=== PATIENT | male | born 1970 | race Caucasian/White ===

== ENCOUNTER 2021-06-23 14:18 | Emergency (ER) | payer OTHER ==
[2021-06-23] MEDS ORDERED: SODIUM CHLORIDE 0.9% 500 ML INFUS.BAG IV ONE (15:11)
[2021-06-23 15:20] VITALS: TEMP 98.4; BMI 25.7
[2021-06-23 15:58] LABS: BASO % 1.9 % (0-2.0); EOS % 2.2 % (0-4.5); HEMATOCRIT 46.1 % (35.4-49); HEMOGLOBIN 15.8 GM/dl (11.7-16.9); LYMPH % 14.9 % (8-40); MCH 32.1 pg (25.7-33.7); MCHC 34.3 g/dl (32.0-35.9); MEAN CELL VOLUME 93.6 fl (80-96); MEAN PLT VOLUME 8.3 fl (7.5-11.1); MONO % 6.9 % (3.8-10.2); NEUT % 74.1 % (42.8-82.8); PLATELET COUNT 177 10^3/uL (134-434); RBC 4.93 M/mm3 (4.00-5.60); RDW 11.3 % (11.9-15.9); WHITE BLOOD COUNT 8.8 K/mm3 (4.0-10.8)
[2021-06-23 16:17] LABS: ALBUMIN 4.1 g/dl (3.4-5.0); BILIRUBIN,TOTAL 1.4 mg/dl (0.2-1); CALCIUM 8.6 mg/dl (8.5-10); CREATININE 0.6 mg/dl (0.55-1.3); MAGNESIUM 1.8 mg/dL (1.8-2.4); PHOSPHOROUS 3.6 mg/dl (2.5-4.9); TOT PROT 7.6 g/dl (6.4-8.2)
[2021-06-23] MEDS ORDERED: INSULIN REGULAR HUMAN 100 UNITS/ML *VIAL SQ ONE (16:30)
[2021-06-23 16:37] LABS: VENOUS BASE EXCESS 0.2 mmol/L (-2-2); VENOUS O2 SATURATION 58.9 % (70-80); VENOUS PCO2 49.2 mmHg (38-52); VENOUS PH 7.351 (7.310-7.410)
[2021-06-23 18:47] VITALS: BP 141/94; PULSE 89
== END 2021-06-23 18:57 | disposition home or self-care (01) ==
LOC: FER 14:18
DX: E11.65 Type 2 diabetes mellitus with hyperglycemia (principal); R63.1 Polydipsia
CPT/HCPCS: 36415; 80053; 82010; 82803; 82962; 83605; 83735; 84100; 85025; 99284-25; C9803; U0003; U0005

== ENCOUNTER 2022-07-28 14:35 | Emergency (ER) | payer OTHER ==
[2022-07-28 14:52] VITALS: BP 122/77; PULSE 90; RESP 16; TEMP 98.5; BMI 32.8
[2022-07-28 16:45] LABS: ALBUMIN 3.8 g/dl (3.4-5.0); BILIRUBIN,TOTAL 1.2 mg/dl (0.2-1); CALCIUM 8.7 mg/dl (8.5-10); CREATININE 0.6 mg/dl (0.55-1.3)
[2022-07-28 17:10] LABS: VENOUS BASE EXCESS 1.1 mmol/L (-2-2); VENOUS O2 SATURATION 82.6 % (70-80); VENOUS PCO2 40.4 mmHg (38-52); VENOUS PH 7.42 (7.310-7.410)
== END 2022-07-28 17:27 | disposition home or self-care (01) ==
LOC: FER 14:35
DX: E09.2 Drug or chemical induced diabetes mellitus with kidney complications (principal)
CPT/HCPCS: 36415; 80053; 82803; 99283-25

== ENCOUNTER 2025-03-29 21:16 | Emergency (ER) | payer OTHER ==
[2025-03-29] MEDS ORDERED: LORazepam 2 MG/ML SDV VIAL ONE (21:24)
[2025-03-29 21:41] VITALS: TEMP 98.8; BMI 32.5
[2025-03-29 21:47] VITALS: BP 134/102; PULSE 146; RESP 18
== END 2025-03-29 21:50 | disposition home or self-care (01) ==
LOC: FER 21:16
PROC: 3E023GC Introduction of Other Therapeutic Substance into Muscle, Percutaneous Approach (ICD-10-PCS; principal; 2025-03-29)
DX: F10.939 Alcohol use, unspecified with withdrawal, unspecified (principal); Y90.9 Presence of alcohol in blood, level not specified; R00.0 Tachycardia, unspecified
CPT/HCPCS: 99284-25

== ENCOUNTER 2025-03-30 02:38 | Observation (INO) | payer OTHER ==
[2025-03-30] MEDS ORDERED: diazePAM CARPU-JECT 10 MG/2 ML DISP.SYRIN ONE (03:05)
[2025-03-30] MEDS ORDERED: THIAMINE HCL 200 MG/2 ML VIAL ONE (03:05)
[2025-03-30] MEDS: THIAMINE HCL 200 MG/2 ML VIAL IVPB ONE (03:14)
[2025-03-30] MEDS: SODIUM CHLORIDE 0.9% 500 ML INFUS.BAG IV ONE ×2 (03:14→04:24)
[2025-03-30] MEDS: diazePAM CARPU-JECT 10 MG/2 ML DISP.SYRIN IVPUSH ONE (03:14)
[2025-03-30] MEDS: THIAMINE HCL 200 MG/2 ML VIAL IM ONE (03:29)
[2025-03-30 03:37] LABS: ABSOLUTE IMMATURE GRANULOCYTES 0.04 x10^3/uL (0.0-0.031); BASOPHILS # 0.06 x10^3/uL (0.01-0.08); EOSINOPHIL % 0.1 % (0.8-7.0); EOSINOPHILS # 0.01 x10^3/uL (0.04-0.54); MCHC 35.8 g/dl (32.3-36.5); MEAN CELL VOLUME 89.0 fl (79.0-92.2); MEAN PLT VOLUME 9.3 fl (9.4-12.4); MONOCYTE # 1.00 x10^3/uL (0.30-0.82); MONOCYTE % 10.9 % (5.3-12.2); RDW 12.3 % (12.2-16.1)
[2025-03-30 04:00] LABS: GLUCOSE,RANDOM 245.0 mg/dL (74-106)
[2025-03-30 04:01] LABS: TOT PROT 8.4 g/dl (6.4-8.2)
[2025-03-30 04:02] LABS: CO2 27.0 mmol/L (21-32)
[2025-03-30 04:03] LABS: ALK PHOS 96.0 U/L (40-150)
[2025-03-30 04:06] LABS: CREATININE 0.65 mg/dL (0.55-1.3); SGOT/AST 107.0 U/L (5-34); SGPT/ALT 92.0 U/L (0-55)
[2025-03-30] MEDS ORDERED: MAGNESIUM SULFATE IN WATER 2 GM/50 ML IVPB IVPB ONE (04:11)
[2025-03-30] MEDS ORDERED: FOLIC ACID 1 MG TABLET (FP) ONE (04:11)
[2025-03-30] MEDS: FOLIC ACID 1 MG TABLET (FP) PO ONE (04:23)
[2025-03-30] MEDS: MULTIVIT INJ. ADULT COMBO WITH VIT K 1 COMBO 10 ML VIAL IV ONE (04:24)
[2025-03-30] MEDS: MAGNESIUM SULF 50% (8.12 MEQ/2 ML-1 GM VIAL) IVPB ONE (04:24)
[2025-03-30] MEDS: LACTATED RINGERS SOLUTION 1000 ML INFUS.BAG IV ONE (05:48)
[2025-03-30] MEDS ORDERED: METOPROLOL TARTRATE 50 MG TABLET (FP) ONE (06:26)
[2025-03-30] MEDS: METOPROLOL TARTRATE 50 MG TABLET (FP) PO SCH (06:28)
[2025-03-30] MEDS: INSULIN ASPART SLIDING SCALE (NOVOLOG) 1 VIAL SQ SCH (07:39)
[2025-03-30] MEDS ORDERED: INSULIN ASPART SLIDING SCALE (NOVOLOG) 1 VIAL SQ ONE (07:40)
[2025-03-30 09:02] LABS: INR 1.13 (0.83-1.09); PROTHROMBIN TIME (PATIENT) 12.4 SEC (9.7-13.0)
[2025-03-30 09:46] LABS: HEPATITIS B SURF AG NON-MATERN NON-REACTIVE (NONREACTIVE)
[2025-03-30] MEDS: THIAMINE 100 MG TABLET PO SCH (11:08)
[2025-03-30] MEDS: ENOXAPARIN NA (PORCINE) 40 MG/0.4 ML DISP.SYRIN SQ SCH (11:08)
[2025-03-30] MEDS: ACETAMINOPHEN 325 MG TABLET (FP) PO PRN (14:09)
[2025-03-30 15:10] VITALS: BMI 33.1
[2025-03-30 15:27] VITALS: RESP 18
[2025-03-31 08:08] LABS: MCHC 34.7 g/dl (32.3-36.5)
[2025-03-31 08:10] LABS: IMMATURE PLATELET FRACTION # 2.80 x10^3/uL; MEAN CELL VOLUME 92.4 fl (79.0-92.2); MEAN PLT VOLUME 9.4 fl (9.4-12.4); RDW 12.6 % (12.2-16.1)
[2025-03-31 08:52] LABS: GLUCOSE,RANDOM 182.0 mg/dL (74-106); TOT PROT 6.7 g/dl (6.4-8.2)
[2025-03-31 08:53] LABS: CO2 29.0 mmol/L (21-32); LDL CHOLESTEROL (ONLY SJRH) 107 mg/dL (5-100)
[2025-03-31 08:57] LABS: SGPT/ALT 75.0 U/L (0-55)
[2025-03-31 08:58] LABS: CREATININE 0.72 mg/dL (0.55-1.3); SGOT/AST 79.0 U/L (5-34)
[2025-03-31] MEDS: LORazepam 2 MG/ML SDV VIAL IVPUSH PRN (09:13)
[2025-03-31] MEDS: FOLIC ACID 1 MG TABLET (FP) PO SCH (09:14)
[2025-03-31 09:23] LABS: ALK PHOS 73.0 U/L (40-150)
[2025-03-31] MEDS: MAGNESIUM SULFATE IN WATER 2 GM/50 ML IVPB IVPB ONE (10:46)
[2025-03-31 11:34] VITALS: BP 127/84; PULSE 89; TEMP 98.2
[2025-03-31] MEDS: NAPH,MB-DB/K PH,MBDB POWDER PACKET PO SCH (13:19)
[2025-04-02 12:08] LABS: PARATHYROID HORM INTACT 27 pg/mL (15-65)
== END 2025-03-31 15:37 | disposition home or self-care (01) ==
LOC: JER 02:38 → INTOOBSV 05:37 → JERBED 05:37 → J4W 08:22
PROVIDERS: ADMIT Internal Medicine; ATTEND Student in an Organized Health Care Education/Training Program
PROC: 3E033NZ Introduction of Analgesics, Hypnotics, Sedatives into Peripheral Vein, Percutaneous Approach (ICD-10-PCS; principal; 2025-03-30)
PROC: 3E023GC Introduction of Other Therapeutic Substance into Muscle, Percutaneous Approach (ICD-10-PCS; 2025-03-30)
PROC: 3E0337Z Introduction of Electrolytic and Water Balance Substance into Peripheral Vein, Percutaneous Approach (ICD-10-PCS; 2025-03-30)
PROC: 3E033GC Introduction of Other Therapeutic Substance into Peripheral Vein, Percutaneous Approach (ICD-10-PCS; 2025-03-30)
DX: I48.0 Paroxysmal atrial fibrillation (principal); F10.231 Alcohol dependence with withdrawal delirium; E11.9 Type 2 diabetes mellitus without complications; R77.8 Other specified abnormalities of plasma proteins; I44.7 Left bundle-branch block, unspecified; F41.8 Other specified anxiety disorders; E83.42 Hypomagnesemia; Z87.891 Personal history of nicotine dependence
CPT/HCPCS: 36415; 71045-TC-FY; 76705-TC; 80053; 80061; 82248; 82306; 82310; 82962; 83036; 83690; 83735; 83970; 84100; 84484; 85025; 85027; 85610; 86704; 86709; 87340; 87517; 87637-QW; 93005; 93010; 99285-25; G0378